=== PATIENT | female | born 1955 | race Caucasian/White ===

== ENCOUNTER → 2016-09-24 | Outpatient (CLI) | payer BC ==
[2016-09-24 13:32] LABS: ABSOLUTE EOSINOPHILS # (AUTO) 0.3 10^3/uL (0.0-0.6); ABSOLUTE LYMPHOCYTES (AUTO) 1.2 10^3/uL (0.5-4.7); ABSOLUTE MONOCYTES (AUTO) 0.4 10^3/uL (0.1-1.4); ABSOLUTE NEUT (AUTO) 3.7 10^3/uL (1.7-8.2); BASOPHILS % (AUTO) 0.7 % (0-2); EOSINOPHILS % (AUTO) 5.7 % (0-6); HEMATOCRIT 36.8 % (36.0-47.0); HEMOGLOBIN 12.5 g/dL (12.0-15.5); HGB HCT DIFFERENCE 0.7; LYMPHOCYTES % (AUTO) 21.5 % (13-45); MEAN CORPUSCULAR HEMOGLOBIN 29.9 pg (27.0-33.4); MEAN CORPUSCULAR HGB CONC 34.1 g/dL (32.0-36.0); MEAN CORPUSCULAR VOLUME 88 fl (80-97); MONOCYTES % (AUTO) 7.3 % (3-13); SEGMENTED NEUTROPHILS % (AUTO) 64.8 % (42-78); WHITE BLOOD COUNT 5.8 10^3/uL (4.0-10.5)
[2016-09-24 13:50] LABS: ALANINE AMINOTRANSFERASE 37 U/L (9-52); ALBUMIN 3.7 g/dL (3.5-5.0); ALKALINE PHOSPHATASE 71 U/L (38-126); ANION GAP 10 (5-19); ASPARTATE AMINO TRANSFERASE 19 U/L (14-36); BILIRUBIN,TOTAL 0.4 mg/dL (0.2-1.3); BLOOD UREA NITROGEN 21 mg/dL (7-20); CALCIUM 9.2 mg/dL (8.4-10.2); CARBON DIOXIDE 24 mmol/L (22-30); CHLORIDE 109 mmol/L (98-107); CREATININE RESULT 0.81 mg/dL (0.52-1.25); GLUCOSE 96 mg/dL (75-110); POTASSIUM 4.3 mmol/L (3.6-5.0); SODIUM 142.9 mmol/L (137-145); TOTAL PROTEIN 6.8 g/dL (6.3-8.2)
== END ==
LOC: OD 12:44
PROVIDERS: ATTEND Internal Medicine
DX: I10 Essential (primary) hypertension (principal); Z79.899 Other long term (current) drug therapy
CPT/HCPCS: 36415; 80053; 85025

== ENCOUNTER → 2018-06-30 | Outpatient (CLI) | payer MEDICARE ==
[2018-06-30 10:02] LABS: ABSOLUTE EOSINOPHILS # (AUTO) 0.2 10^3/uL (0.0-0.6); ABSOLUTE LYMPHOCYTES (AUTO) 0.8 10^3/uL (0.5-4.7); ABSOLUTE MONOCYTES (AUTO) 0.4 10^3/uL (0.1-1.4); BASOPHILS % (AUTO) 0.5 % (0-2); HEMATOCRIT 37.9 % (36.0-47.0); HEMOGLOBIN 13.1 g/dL (12.0-15.5); LYMPHOCYTES % (AUTO) 15.2 % (13-45); MEAN CORPUSCULAR HEMOGLOBIN 30.1 pg (27.0-33.4); MEAN CORPUSCULAR HGB CONC 34.6 g/dL (32.0-36.0); MEAN CORPUSCULAR VOLUME 87 fl (80-97); PLATELET COUNT 253 10^3/uL (150-450); RED BLOOD COUNT 4.35 10^6/uL (3.72-5.28); RED CELL DISTRIBUTION WIDTH 13.8 % (11.5-14.0); SEGMENTED NEUTROPHILS % (AUTO) 72.3 % (42-78); TOTAL CELLS COUNTED % (AUTO) 100 %; WHITE BLOOD COUNT 5.5 10^3/uL (4.0-10.5)
[2018-06-30 10:08] LABS: ALANINE AMINOTRANSFERASE 29 U/L (9-52); ALKALINE PHOSPHATASE 72 U/L (38-126); ANION GAP 11 (5-19); ASPARTATE AMINO TRANSFERASE 26 U/L (14-36); BILIRUBIN,DIRECT 0.1 mg/dL (0.0-0.4); BILIRUBIN,TOTAL 0.5 mg/dL (0.2-1.3); BLOOD UREA NITROGEN 21 mg/dL (7-20); CARBON DIOXIDE 27 mmol/L (22-30); CHLORIDE 106 mmol/L (98-107); CHOLESTEROL 204.45 mg/dL (0-200); GLUCOSE 93 mg/dL (75-110); POTASSIUM 4.7 mmol/L (3.6-5.0); SODIUM 144.3 mmol/L (137-145); TOTAL PROTEIN 6.5 g/dL (6.3-8.2); TRIGLYCERIDES 79 mg/dL (<150)
[2018-06-30 10:20] LABS: DIRECT LDL 127 mg/dL (<100)
== END ==
LOC: OD 09:18
PROVIDERS: ATTEND Internal Medicine
DX: I10 Essential (primary) hypertension (principal); E78.00 Pure hypercholesterolemia, unspecified; Z79.899 Other long term (current) drug therapy
CPT/HCPCS: 36415; 80053; 80061; 85025

== ENCOUNTER 2018-07-09 12:19 | Observation (INO) | payer MEDICARE ==
[2018-07-09] MEDS ORDERED: ASPIRIN 81 MG TABLET, CHEWABLE PO ONE (14:06)
--- NOTE | 2018-07-09 14:09 | ER Document Report ---
ED Medical Screen (RME) - General TRAVEL OUTSIDE OF THE [place] IN LAST 30 DAYS: No <RACQUEL REAL - Last Filed: 07/09/18 14:08> <GAVIN BENSON - Last Filed: 07/09/18 15:36> - General Chief Complaint: Chest Pain Stated Complaint: CHEST PAIN Time Seen by Provider: 07/09/18 14:05 Notes: Patient says that she is felt a pressure in her chest since she got up to go to the bathroom around 4 AM this morning. It feels as if an elephant is sitting on her chest. It feels constant. She denies cough cold or chest congestion. Also denies any nausea vomiting or diarrhea has not been ill recently. No fevers. Patient says that she saw her primary care provider, about 10 days ago and he added metoprolol to her losartan for her high blood pressure. Has no history of any heart disease. Non-smoker. (RACQUEL REAL) - Related Data Allergies/Adverse Reactions: celecoxib [From Celebrex] Allergy (Verified 07/09/18 14:05) codeine Allergy (Verified 07/09/18 14:05) Past Medical History - Social History Chew tobacco use (# tins/day): No Frequency of alcohol use: None Drug Abuse: None - Past Medical History Cardiac Medical History: Reports: Hx Hypertension Denies: Hx Heart Attack Pulmonary Medical History: Denies: Hx Asthma Neurological Medical History: Denies: Hx Cerebrovascular Accident, Hx Seizures Renal/ Medical History: Denies: Hx Peritoneal Dialysis GI Medical History: Denies: Hx Hepatitis, Hx Hiatal Hernia, Hx Ulcer Infectious Medical History: Denies: Hx Hepatitis Past Surgical History: Reports: Hx Hysterectomy. Denies: Hx Mastectomy, Hx Open Heart Surgery, Hx Pacemaker <RACQUEL REAL - Last Filed: 07/09/18 14:08> - Vital signs Vitals: Temp Pulse Resp BP Pulse Ox 97.7 F 44 L 16 137/63 H 97 07/09/18 12:32 07/09/18 12:32 07/09/18 12:32 07/09/18 12:32 07/09/18 12:32 Course - Laboratory Result Diagrams: 07/09/18 14:19 07/09/18 14:19 <GAVIN BENSON - Last Filed: 07/09/18 15:36> - Vital Signs Vital signs: Temp Pulse Resp BP Pulse Ox 97.7 F 44 L 16 137/63 H 97 07/09/18 12:32 07/09/18 12:32 07/09/18 12:32 07/09/18 12:32 07/09/18 12:32 - Laboratory Laboratory results interpreted by me: 07/09/18 07/09/18 14:19 14:19 Seg Neutrophils % 89.6 H Lymphocytes % 7.5 L Monocytes % 2.5 L Absolute Neutrophils 8.9 H BUN 21 H Creatinine 0.50 L Glucose 124 H Doctor's Discharge <RACQUEL REAL - Last Filed: 07/09/18 14:08> <GAVIN BENSON - Last Filed: 07/09/18 15:36> - Discharge Clinical Impression: Chest pain Qualifiers: Chest pain type: unspecified Qualified Code(s): R07.9 - Chest pain, unspecified Condition: Fair Disposition: ADMITTED OBSERVATION
[2018-07-09 14:43] LABS: ABSOLUTE LYMPHOCYTES (AUTO) 0.7 10^3/uL (0.5-4.7); ABSOLUTE MONOCYTES (AUTO) 0.2 10^3/uL (0.1-1.4); ABSOLUTE NEUT (AUTO) 8.9 10^3/uL (1.7-8.2); BASOPHILS % (AUTO) 0.3 % (0-2); EOSINOPHILS % (AUTO) 0.1 % (0-6); HEMATOCRIT 37.5 % (36.0-47.0); HEMOGLOBIN 12.9 g/dL (12.0-15.5); LYMPHOCYTES % (AUTO) 7.5 % (13-45); MEAN CORPUSCULAR HEMOGLOBIN 30.1 pg (27.0-33.4); MEAN CORPUSCULAR HGB CONC 34.4 g/dL (32.0-36.0); MEAN CORPUSCULAR VOLUME 87 fl (80-97); MONOCYTES % (AUTO) 2.5 % (3-13); PLATELET COUNT 310 10^3/uL (150-450); RED BLOOD COUNT 4.29 10^6/uL (3.72-5.28); RED CELL DISTRIBUTION WIDTH 13.7 % (11.5-14.0); SEGMENTED NEUTROPHILS % (AUTO) 89.6 % (42-78); TOTAL CELLS COUNTED % (AUTO) 100 %; WHITE BLOOD COUNT 9.9 10^3/uL (4.0-10.5)
[2018-07-09 15:02] LABS: ALANINE AMINOTRANSFERASE 32 U/L (9-52); ALKALINE PHOSPHATASE 67 U/L (38-126); ANION GAP 14 (5-19); ASPARTATE AMINO TRANSFERASE 25 U/L (14-36); BILIRUBIN,DIRECT 0.1 mg/dL (0.0-0.4); BILIRUBIN,TOTAL 0.3 mg/dL (0.2-1.3); BLOOD UREA NITROGEN 21 mg/dL (7-20); CALCIUM 9.4 mg/dL (8.4-10.2); CARBON DIOXIDE 25 mmol/L (22-30); CHLORIDE 103 mmol/L (98-107); CREATINE KINASE 112 U/L (30-135); GLUCOSE 124 mg/dL (75-110); POTASSIUM 4.2 mmol/L (3.6-5.0); SODIUM 142.1 mmol/L (137-145); TOTAL PROTEIN 6.7 g/dL (6.3-8.2)
[2018-07-09 15:13] LABS: CREATINE KINASE MB 2.17 ng/mL (<4.55); TROPONIN I 0.03 ng/mL
--- NOTE | 2018-07-09 15:14 | RADIOLOGY REPORT (SQ) ---
EXAM DESCRIPTION: CHEST SINGLE VIEW COMPLETED DATE/TIME: 07/09/2018 3:00 pm REASON FOR STUDY: Anterior chest pain COMPARISON: None. EXAM PARAMETERS: NUMBER OF VIEWS: One view. TECHNIQUE: Single frontal radiographic view of the chest acquired. RADIATION DOSE: NA LIMITATIONS: None. FINDINGS: LUNGS AND PLEURA: No opacities, masses or pneumothorax. No pleural effusion. MEDIASTINUM AND HILAR STRUCTURES: No masses. Contour normal. HEART AND VASCULAR STRUCTURES: Heart normal in size. Normal vasculature. BONES: No acute findings. HARDWARE: None in the chest. OTHER: No other significant finding. IMPRESSION: NO ACUTE RADIOGRAPHIC FINDING IN THE CHEST. TECHNICAL DOCUMENTATION: JOB ID: [id number] [employer]- All Rights Reserved Reading location - IP/workstation name: [email or web address]
--- NOTE | 2018-07-09 15:53 | ER Document Report ---
ED Cardiac - General Chief Complaint: Chest Pain Stated Complaint: CHEST PAIN Time Seen by Provider: 07/09/18 14:05 Information source: Patient Notes: 63-year-old female that presents today with the onset this morning of some substernal nonradiating chest discomfort. She denies any radiation. She denies any aggravating or relieving factors. She denies any nausea, vomiting, fevers, shortness of breath, lightheadedness, calf pain or leg swelling. She denies any recent trips or travel. Patient states she had a stress test prior to a breast cancer surgery in the past. Has never seen a reimbursement director otherwise. Patient was restarted on her metoprolol blood pressure medication yesterday by her primary care physician Dr. Combs. She currently denies any chest pain. She has received aspirin 325. TRAVEL OUTSIDE OF THE [place] IN LAST 30 DAYS: No - HPI Patient complains to provider of: Chest pain Was the onset of pain: Gradual Is the pain a: New problem Chest pain location: Substernal Quality of pain: Other Chest pain radiation location: None Severity now: None Severity at worst: Moderate Pain level currently: Denies Associated symptoms: Other Exacerbated by: Denies Relieved by: Nothing Similar symptoms previously: No Recently seen / treated by doctor: No - Related Data Allergies/Adverse Reactions: celecoxib [From Celebrex] Allergy (Verified 07/09/18 14:05) codeine Allergy (Verified 07/09/18 14:05) Past Medical History - Social History Smoking Status: Never Smoker Chew tobacco use (# tins/day): No Frequency of alcohol use: None Drug Abuse: None Family History: Reviewed & Not Pertinent Patient has suicidal ideation: No Patient has homicidal ideation: No - Past Medical History Cardiac Medical History: Reports: Hx Hypertension Denies: Hx Heart Attack Pulmonary Medical History: Denies: Hx Asthma Neurological Medical History: Denies: Hx Cerebrovascular Accident, Hx Seizures Renal/ Medical History: Denies: Hx Peritoneal Dialysis GI Medical History: Denies: Hx Hepatitis, Hx Hiatal Hernia, Hx Ulcer Infectious Medical History: Denies: Hx Hepatitis Past Surgical History: Reports: Hx Hysterectomy. Denies: Hx Mastectomy, Hx Open Heart Surgery, Hx Pacemaker Review of Systems - Review of Systems Constitutional: denies: Fever EENT: denies: Eye discharge, Nose discharge Cardiovascular: denies: Palpitations, Syncope, Dizziness Respiratory: denies: Short of breath Gastrointestinal: denies: Vomiting Genitourinary: denies: Dysuria Musculoskeletal: denies: Leg swelling Skin: Other - no hives. denies: Rash Neurological/Psychological: Other - no slurred speech -: Yes All other systems reviewed and negative Physical Exam - Vital signs Vitals: Temp Pulse Resp BP Pulse Ox 97.7 F 44 L 16 137/63 H 97 07/09/18 12:32 07/09/18 12:32 07/09/18 12:32 07/09/18 12:32 07/09/18 12:32 Notes: Reviewed vital signs and nursing note as charted by RN. CONSTITUTIONAL: Alert and oriented and responds appropriately to questions. Well -appearing; well-nourished HEAD: Normocephalic; atraumatic NECK: Supple without meningismus; non-tender; no cervical lymphadenopathy, no masses CARD: Regular rate and rhythm; no murmurs; symmetric distal pulses RESP: Normal chest excursion without splinting or tachypnea; breath sounds clear and equal bilaterally; no wheezes, no rhonchi, no rales ABD/GI: Normal bowel sounds; non-distended; soft, non-tender; no palpable organomegaly or masses BACK: The back appears normal and is non-tender to palpation EXT: Normal ROM in all joints; non-tender to palpation; no edema SKIN: No acute lesions noted NEURO: CN 2-12 intact; 5/5 bilateral upper and lower extremity strength with sensation intact to light touch PSYCH: The patient's mood and manner are appropriate. Grooming and personal hygiene are appropriate. Course - Re-evaluation Re-evalutation: Given the above history and physical examination I do believe pulmonary embolism and aortic dissection to be extremely unlikely. Patient's blood pressure was stable but her heart rate is very low. I am concerned about this possibly being related to her recent restarting her beta-johanna by her primary care physician. EKG shows a heart rate of 44, sinus bradycardia, minimal left axis deviation, flattening T waves in aVL, no ST elevation or depression. I have no old EKG to compare. Chest x-ray shows normal heart, normal mediastinum, no fractures, normal lung reno, no pneumothorax. 07/09/18 15:51 Labs as recorded. Patient is still chest pain-free. Patient will be admitted to the hospitalist service on the panel monitor observation unit. - Vital Signs Vital signs: Temp Pulse Resp BP Pulse Ox 97.7 F 44 L 16 137/63 H 97 07/09/18 12:32 07/09/18 12:32 07/09/18 12:32 07/09/18 12:32 07/09/18 12:32 - Laboratory Result Diagrams: 07/09/18 14:19 07/09/18 14:19 Laboratory results interpreted by me: 07/09/18 07/09/18 14:19 14:19 Seg Neutrophils % 89.6 H Lymphocytes % 7.5 L Monocytes % 2.5 L Absolute Neutrophils 8.9 H BUN 21 H Creatinine 0.50 L Glucose 124 H Discharge - Discharge Clinical Impression: Chest pain Qualifiers: Chest pain type: unspecified Qualified Code(s): R07.9 - Chest pain, unspecified Condition: Fair Disposition: ADMITTED OBSERVATION Admitting Provider: Hospitalist Unit Admitted: Telemetry
[2018-07-09] MEDS ORDERED: NORMAL SALINE 1000 ML 1,000 ML IV PRN (16:39)
[2018-07-09] MEDS ORDERED: MORPHINE SULFATE 10 MG/ML INJ IV PRN (16:39)
[2018-07-09] MEDS ORDERED: MAG HYDROX/AL HYDROX/SIMETH SUSP 30 ML UDCUP PO PRN (16:39)
[2018-07-09] MEDS ORDERED: PROMETHAZINE HCL INJ 25 MG/1 ML VIAL IV PRN (16:43)
[2018-07-09] MEDS ORDERED: HYDRALAZINE HCL INJ/PF 20 MG/1 ML SDV IV PRN (16:45)
--- NOTE | 2018-07-09 17:03 | PDOC H&P ---
History of Present Illness Admission Date/PCP: 07/09/18 16:31 Patient complains of: chest pain History of Present Illness: CAROL ANN PAK is a 63 year old female with a past medical history of hypertension , hyperlipidemia, and remote breast cancer status post radiation treatment who presented to the emergency department today with a complaint of persistent substernal chest pain described as pressure that has been present since approximately 4 AM this morning. It is not especially worsened by activity or relieved by rest; no associated symptoms. The patient reports that she had a stress test and echocardiogram that were reportedly normal in 2006 but has had no cardiac follow-up since that time. Of note, she did start Toprol 50 mg once daily approximately 1 week ago for management of hypertension and complaint of palpitations to her provider. She cannot recall if her primary care provider had noted any abnormal rhythm changes at the time of that visit. Evaluation in the emergency department revealed profound bradycardia (heart rate 38-44), normal blood pressure, indeterminately elevated troponin at 0.03 and otherwise normal laboratory evaluation. Chest x-ray is benign. EKG demonstrates sinus bradycardia with borderline left axis deviation; no ST segment elevations or depressions, inverted T waves leads III and V1. She is referred to the hospitalist service for admission and evaluation of chest pain. Past Medical History Cardiac Medical History: Reports: Hyperlipidema, Hypertension Denies: Coronary Artery Disease, Myocardial Infarction Pulmonary Medical History: Reports: None EENT Medical History: Reports: None Neurological Medical History: Reports: None Endocrine Medical History: Reports: None Renal/ Medical History: Reports: None Malignancy Medical History: Reports: Breast Cancer GI Medical History: Reports: None Musculoskeltal Medical History: Reports: None Skin Medical History: Reports: None Psychiatric Medical History: Reports: None Traumatic Medical History: Reports: None Hematology: Reports: None Infectious Medical History: Reports: None Past Surgical History Past Surgical History: Reports: Hysterectomy Denies: Amputation, Mastectomy, Pacemaker Social History Information Source: Patient Lives with: Family Smoking Status: Never Smoker Frequency of Alcohol Use: Occasional Hx Recreational Drug Use: No Drugs: None - Advance Directive Resuscitation Status: Full Code Surrogate healthcare decision maker:: The patient's daughter, Kamilla. Family History Family History: Reviewed & Not Pertinent Parental Family History Reviewed: Yes Children Family History Reviewed: Yes Sibling(s) Family History Reviewed.: Yes Medication/Allergy Home Medications: Losartan Potassium [Cozaar 100 mg Tablet] 100 mg PO DAILY 03/20/13 Cholecalciferol (Vitamin D3) [Vitamin D3 1000 Unit Tablet] 1,000 unit PO DAILY 07/09/18 Metoprolol Succinate [Toprol Xl] 50 mg PO QPM 07/09/18 Multivit/Folic Acid/Vit K1 [One-A-Day Women's 50 Plus Tab] 1 each PO DAILY 07/09 Oxybutynin Chloride [Ditropan 5 Mg Tablet] 5 mg PO TID 07/09/18 Turmeric Root Extract [Turmeric] 1,000 mg PO DAILY 07/09/18 Allergies/Adverse Reactions: oxybutynin Allergy (Mild, Verified 07/09/18 16:33) ITCHING celecoxib [From Celebrex] Allergy (Verified 07/09/18 14:05) Review of Systems Constitutional: ABSENT: chills, fever(s), headache(s), weight gain, weight loss Eyes: ABSENT: visual disturbances Ears: ABSENT: hearing changes Cardiovascular: PRESENT: chest pain. ABSENT: dyspnea on exertion, edema, orthropnea, palpitations Respiratory: ABSENT: cough, hemoptysis Gastrointestinal: ABSENT: abdominal pain, constipation, diarrhea, hematemesis, hematochezia, nausea, vomiting Genitourinary: ABSENT: dysuria, hematuria Musculoskeletal: ABSENT: joint swelling Integumentary: ABSENT: rash, wounds Neurological: ABSENT: abnormal gait, abnormal speech, confusion, dizziness, focal weakness, syncope Psychiatric: ABSENT: anxiety, depression, homidical ideation, suicidal ideation Endocrine: ABSENT: cold intolerance, heat intolerance, polydipsia, polyuria Hematologic/Lymphatic: ABSENT: easy bleeding, easy bruising Physical Exam Vital Signs: Temp Pulse Resp BP Pulse Ox 97.7 F 44 L 16 137/63 H 97 07/09/18 12:32 07/09/18 12:32 07/09/18 12:32 07/09/18 12:32 07/09/18 12:32 General appearance: PRESENT: no acute distress, cooperative - Pleasant, well- developed, well-nourished - Overweight Head exam: PRESENT: atraumatic, normocephalic Eye exam: PRESENT: conjunctiva pink, EOMI, PERRLA. ABSENT: scleral icterus Ear exam: PRESENT: normal external ear exam Mouth exam: PRESENT: moist, tongue midline Neck exam: ABSENT: carotid bruit, JVD, lymphadenopathy, thyromegaly Respiratory exam: PRESENT: clear to auscultation monie, symmetrical, unlabored. ABSENT: rales, rhonchi, wheezes Cardiovascular exam: PRESENT: bradycardia, +S1, +S2. ABSENT: diastolic murmur, rubs, systolic murmur Pulses: PRESENT: normal dorsalis pedis pul Vascular exam: PRESENT: normal capillary refill GI/Abdominal exam: PRESENT: normal bowel sounds, soft. ABSENT: distended, guarding, mass, organolmegaly, rebound, tenderness Rectal exam: PRESENT: deferred Extremities exam: PRESENT: full ROM. ABSENT: calf tenderness, clubbing, pedal edema Neurological exam: PRESENT: alert, awake, oriented to person, oriented to place , oriented to time, oriented to situation, CN II-XII grossly intact. ABSENT: motor sensory deficit Psychiatric exam: PRESENT: appropriate affect, normal mood. ABSENT: homicidal ideation, suicidal ideation Skin exam: PRESENT: dry, intact, warm. ABSENT: cyanosis, rash Results Impressions: Chest X-Ray 07/09/18 14:06 IMPRESSION: NO ACUTE RADIOGRAPHIC FINDING IN THE CHEST. Assessment & Plan - Diagnosis (1) Chest pain Qualifiers: Chest pain type: unspecified Qualified Code(s): R07.9 - Chest pain, unspecified Is this a current diagnosis for this admission?: Yes Plan: The patient complains of persistent substernal chest pain that has been present since approximately 4 AM this morning. No alleviating or exacerbating factors, no associated symptoms. Heart Score 4; risk factors include moderately suspicious history, age, obesity , hypertension, hyperlipidemia. Chest x-ray is benign. EKG demonstrates sinus bradycardia with inverted T waves in leads III and V1. No ST segment changes. Initial troponin is indeterminately elevated at 0.030 The patient is admitted to the medical floor on continuous cardiac telemetry. She is placed on full dose Lovenox. Daily aspirin therapy. Statin medications are held due to report of severe myalgias with Crestor. We will trend troponins. Echocardiogram is pending. Plan for stress test in the morning. Consider cardiology consultation; especially if she remains bradycardic. Avoid nitroglycerin and patient with significant bradycardia; IV morphine as needed for pain. Supplemental oxygen as needed to maintain oxygen saturations greater than 90% A1c and lipid panel with a.m. labs for risk stratification. Cardiac diet. (2) Bradycardia Is this a current diagnosis for this admission?: Yes Plan: Asymptomatic bradycardia. Heart rate noted to be 38-44; blood pressures are acceptable at 137/63. She denies dizziness with ambulation. Undetermined cause; ACS versus new metoprolol medication (patient reports that she resumed metoprolol after being off the medication for approximately 1 year) . She denies any possibility of accidental metoprolol overdose. EKG demonstrated sinus bradycardia. Trending troponins. TSH is pending. As the patient has appropriate blood pressures and is asymptomatic; will provide gentle IV fluids, provide for patient safety with fall precautions, and continue to monitor on cardiac telemetry. We will consult cardiology if not improved in the morning. Hold metoprolol. Avoid nitrates. (3) Hypertension Qualifiers: Hypertension type: essential hypertension Qualified Code(s): I10 - Essential (primary) hypertension Is this a current diagnosis for this admission?: Yes Plan: The patient reports a history of hypertension; takes losartan 100 mg daily and was recently placed on Toprol-XL 50 mg nightly. Blood pressures are acceptable at present; however patient is noted to be significantly bradycardic. IV hydralazine as needed for blood pressure control. Cardiac diet. Remaining plan as above. (4) Hyperlipidemia Is this a current diagnosis for this admission?: Yes Plan: Patient reports severe myalgias with Crestor; will avoid statin therapies. Lipid panel with a.m. lab work. Cardiac diet. - Time Time Spent: 50 to 70 Minutes Medications reviewed and adjusted accordingly: Yes Anticipated discharge: Home Within: within 24 hours
[2018-07-09] MEDS ORDERED: METOCLOPRAMIDE HCL ORAL SOLN 10 MG/10 ML UDCUP PO ONE (17:50)
[2018-07-09] MEDS ORDERED: LIDOCAINE 2% VISCOUS SOLN 20 ML UDCUP PO ONE (17:50)
[2018-07-09] MEDS ORDERED: MAG HYDROX/AL HYDROX/SIMETH SUSP 30 ML UDCUP PO ONE (17:50)
[2018-07-09] MEDS: LANSOPRAZOLE 30 MG TAB.RAP.DR PO SCH (18:18)
[2018-07-09] MEDS: ENOXAPARIN SODIUM INJ 80 MG/0.8 ML DISP.SYRIN SUBCUT SCH (21:37)
--- NOTE | 2018-07-09 21:41 | EKG REPORT ---
SEVERITY:- OTHERWISE NORMAL ECG - SINUS BRADYCARDIA BORDERLINE LEFT AXIS DEVIATION : Confirmed by: Florence Christine MD 09-Jul-2018 21:40:51
[2018-07-10] MEDS: LANSOPRAZOLE 30 MG TAB.RAP.DR PO SCH (05:07)
[2018-07-10 06:18] LABS: HEMATOCRIT 35.6 % (36.0-47.0); MEAN CORPUSCULAR HEMOGLOBIN 29.5 pg (27.0-33.4); MEAN CORPUSCULAR HGB CONC 33.7 g/dL (32.0-36.0); MEAN CORPUSCULAR VOLUME 88 fl (80-97); PLATELET COUNT 248 10^3/uL (150-450); RED BLOOD COUNT 4.06 10^6/uL (3.72-5.28); RED CELL DISTRIBUTION WIDTH 13.7 % (11.5-14.0); WHITE BLOOD COUNT 8.7 10^3/uL (4.0-10.5)
[2018-07-10 06:36] LABS: ANION GAP 9 (5-19); BLOOD UREA NITROGEN 17 mg/dL (7-20); CALCIUM 8.5 mg/dL (8.4-10.2); CARBON DIOXIDE 26 mmol/L (22-30); CHLORIDE 108 mmol/L (98-107); CHOLESTEROL 174.88 mg/dL (0-200); GLUCOSE 114 mg/dL (75-110); POTASSIUM 3.9 mmol/L (3.6-5.0); SODIUM 143.1 mmol/L (137-145); TRIGLYCERIDES 135 mg/dL (<150)
[2018-07-10 06:47] LABS: DIRECT LDL 104 mg/dL (<100)
[2018-07-10] MEDS ORDERED: LORAZEPAM 0.5 MG TABLET PO PRN (09:13)
[2018-07-10] MEDS: ENOXAPARIN SODIUM INJ 80 MG/0.8 ML DISP.SYRIN SUBCUT SCH (09:23)
[2018-07-10] MEDS ORDERED: ASPIRIN 81 MG TABLET, ENT COATED PO SCH (10:00)
[2018-07-10] MEDS ORDERED: DOCUSATE SODIUM 100 MG CAPSULE PO SCH (10:00)
[2018-07-10 11:29] VITALS: BP 137/63
--- NOTE | 2018-07-10 13:58 | EKG REPORT ---
SEVERITY:- OTHERWISE NORMAL ECG - SINUS BRADYCARDIA BORDERLINE LEFT AXIS DEVIATION : Confirmed by: Florence Christine MD 10-Jul-2018 13:57:58
[2018-07-10] MEDS ORDERED: BUSPIRONE HCL 10 MG TABLET PO SCH (22:00)
[2018-07-11] MEDS ORDERED: BUSPIRONE HCL 10 MG TABLET PO SCH (08:00)
--- NOTE | 2018-07-11 16:42 | PDOC DISCHARGE SUMMARY ---
General - Admit/Disc Date/PCP Admission Date/Primary Care Provider: 07/09/18 16:31 Discharge Date: 07/10/18 - Discharge Diagnosis (1) Chest pain Is this a current diagnosis for this admission?: Yes Summary: The patient presented with a complaint of persistent substernal chest pain without alleviating or aggravating factors and no associated symptoms. Heart Score 4; risk factors include moderately suspicious history, age, obesity , hypertension, hyperlipidemia. Chest x-ray is benign. EKG demonstrates sinus bradycardia with inverted T waves in leads III and V1. No ST segment changes. Initial troponin is indeterminately elevated at 0.030. Trended x4, overall stable and trending down. A1c 5.5%, lipid panel acceptable. Patient was admitted to [facility] on continuous cardiac telemetry. She was placed on full dose Lovenox and daily aspirin therapy. Statins were held due to report of severe myalgias with Crestor. Cardiology was consulted; recommended holding her metoprolol and monitoring overnight. Fortunately the patient's heart rate gradually increased and at time of discharge was stable in the mid 60s-70s. The patient's chest discomfort persisted and in the morning she reported that she felt that it was due to chronic stress and anxiety; requested anxiety medications. She was provided prescriptions for BuSpar twice daily with low- dose Ativan for breakthrough symptoms. She is discharged home in stable condition. Discussed with Cardiology prior to discharge; feel that she is safe for discharge to home with outpatient work up. She is advised to follow-up with her primary care provider within 1 week. She is to follow-up with cardiology, Dr. Gross, within 2 weeks to complete her cardiac workup. Patient is instructed to return to the emergency department as needed for any concerning symptoms. (2) Bradycardia Is this a current diagnosis for this admission?: Yes Summary: Resolved; likely secondary to recent initiation of Toprol-XL. At time of discharge, her heart rate was stable in the mid 60s-70s. Orthostatics vital signs were negative. (3) Hypertension Is this a current diagnosis for this admission?: Yes Summary: Patient to continue her home dose losartan. Hold metoprolol (4) Hyperlipidemia Is this a current diagnosis for this admission?: No Summary: Diet controlled. Lipid panel is acceptable. (5) Anxiety Is this a current diagnosis for this admission?: Yes Summary: Pt reports significant stress and anxiety recently; feels that her chest discomfort may be related to anxiety and requests medications. She is started on twice daily Buspar. She was provided prescriptions for twice daily Buspar and low-dose Ativan as needed for severe symptoms. She is encouraged to discuss antidepressant therapy with her PCP at her follow up appointment. - Additional Information Resuscitation Status: Full Code Discharge Diet: Cardiac Discharge Activity: Activity As Tolerated, Balance Activity w/Rest Prescriptions: Aspirin [Ecotrin 81 mg EC Tablet] 81 mg PO DAILY #90 tabec Buspirone HCl [Buspar 10 mg Tablet] 10 mg PO ASDIR PRN #45 tablet PRN Reason: Lorazepam [Ativan 0.5 mg Tablet] 0.25 mg PO Q8HP PRN #6 tablet PRN Reason: Home Medications: Losartan Potassium [Cozaar 100 mg Tablet] 100 mg PO DAILY 03/20/13 Cholecalciferol (Vitamin D3) [Vitamin D3 1000 Unit Tablet] 1,000 unit PO DAILY 07/09/18 Multivit/Folic Acid/Vit K1 [One-A-Day Women's 50 Plus Tab] 1 each PO DAILY 07/09 Oxybutynin Chloride [Ditropan 5 mg Tablet] 5 mg PO TID 07/09/18 Turmeric Root Extract [Turmeric] 1,000 mg PO DAILY 07/09/18 Aspirin [Ecotrin 81 mg EC Tablet] 81 mg PO DAILY #90 tabec 07/10/18 Buspirone HCl [Buspar 10 mg Tablet] 10 mg PO ASDIR PRN #45 tablet 07/10/18 Buspirone HCl [Buspar 10 mg Tablet] 10 mg PO QHS tablet 07/10/18 Lorazepam [Ativan 0.5 mg Tablet] 0.25 mg PO Q8HP PRN #6 tablet 07/10/18 History of Present Illness History of Present Illness: CAROL ANN PAK is a 63 year old female with a past medical history of hypertension , hyperlipidemia, and remote breast cancer status post radiation treatment who presented to the emergency department today with a complaint of persistent substernal chest pain described as pressure that has been present since approximately 4 AM this morning. It is not especially worsened by activity or relieved by rest; no associated symptoms. The patient reports that she had a stress test and echocardiogram that were reportedly normal in 2006 but has had no cardiac follow-up since that time. Of note, she did start Toprol 50 mg once daily approximately 1 week ago for management of hypertension and complaint of palpitations to her provider. She cannot recall if her primary care provider had noted any abnormal rhythm changes at the time of that visit. Evaluation in the emergency department revealed profound bradycardia (heart rate 38-44), normal blood pressure, indeterminately elevated troponin at 0.03 and otherwise normal laboratory evaluation. Chest x-ray is benign. EKG demonstrates sinus bradycardia with borderline left axis deviation; no ST segment elevations or depressions, inverted T waves leads III and V1. She is referred to the hospitalist service for admission and evaluation of chest pain. Physical Exam Vital Signs: Temp Pulse Resp BP Pulse Ox 98.0 F 59 L 16 137/63 H 99 07/10/18 11:28 07/10/18 11:28 07/10/18 11:28 07/10/18 11:28 07/10/18 11:28 Intake & Output 07/10/18 07/11/18 07/12/18 06:59 06:59 06:59 Intake Total 459 237 Balance 459 237 Weight 84.6 kg General appearance: PRESENT: no acute distress, well-developed, well-nourished - Overweight Head exam: PRESENT: atraumatic, normocephalic Eye exam: PRESENT: conjunctiva pink, EOMI, PERRLA. ABSENT: scleral icterus Ear exam: PRESENT: normal external ear exam Mouth exam: PRESENT: moist, tongue midline Neck exam: ABSENT: carotid bruit, JVD, lymphadenopathy, thyromegaly Respiratory exam: PRESENT: clear to auscultation monie. ABSENT: rales, rhonchi, wheezes Cardiovascular exam: PRESENT: RRR. ABSENT: diastolic murmur, rubs, systolic murmur Pulses: PRESENT: normal dorsalis pedis pul Vascular exam: PRESENT: normal capillary refill GI/Abdominal exam: PRESENT: normal bowel sounds, soft. ABSENT: distended, guarding, mass, organolmegaly, rebound, tenderness Rectal exam: PRESENT: deferred Extremities exam: PRESENT: full ROM. ABSENT: calf tenderness, clubbing, pedal edema Neurological exam: PRESENT: alert, awake, oriented to person, oriented to place , oriented to time, oriented to situation, CN II-XII grossly intact. ABSENT: motor sensory deficit Psychiatric exam: PRESENT: appropriate affect, normal mood. ABSENT: homicidal ideation, suicidal ideation Skin exam: PRESENT: dry, intact, warm. ABSENT: cyanosis, rash Results Laboratory Results: 07/10/18 06:03 07/10/18 06:03 07/09/18 07/09/18 07/10/18 17:45 23:46 06:03 Troponin I 0.035 0.032 0.028 Impressions: Chest X-Ray 07/09/18 14:06 IMPRESSION: NO ACUTE RADIOGRAPHIC FINDING IN THE CHEST. Qualifiers - * PATIENT BEING DISCHARGED WITH ANY OF THE FOLLOWING DIAGNOSIS: No Plan Discharge Plan: Discharged home. Hold metoprolol. Follow-up with primary care provider within 1 week. Follow-up with cardiology, Dr. Christine, within 2 weeks for continued outpatient workup. Time Spent: Less than 30 Minutes
== END 2018-07-10 11:59 | disposition home or self-care (01) ==
LOC: ER 12:19 → EH 16:31 → 3N 20:00
PROVIDERS: ADMIT Internal Medicine; ATTEND Internal Medicine
DX: R07.2 Precordial pain (principal); R00.1 Bradycardia, unspecified; F41.9 Anxiety disorder, unspecified; I10 Essential (primary) hypertension; E78.5 Hyperlipidemia, unspecified; R79.89 Other specified abnormal findings of blood chemistry; E66.3 Overweight; Z73.3 Stress, not elsewhere classified; Z79.899 Other long term (current) drug therapy; Z92.3 Personal history of irradiation; Z85.3 Personal history of malignant neoplasm of breast; Z90.710 Acquired absence of both cervix and uterus
CPT/HCPCS: 93005 ×2; 99285; 96360; 36415 ×2; 82553; 82550; 84443; 85025; 85027; 80048; 80053; 84484 ×2; 83036; 80061; 71045; 93010 ×2; G0378 ×2; A9270 ×5; J3490; J7030; J1650 ×2

== ENCOUNTER → 2018-11-29 | Outpatient (CLI) | payer MEDICARE ==
[2018-11-29 11:43] LABS: ABSOLUTE BASOPHILS # (AUTO) 0.1 10^3/uL (0.0-0.2); ABSOLUTE EOSINOPHILS # (AUTO) 0.3 10^3/uL (0.0-0.6); ABSOLUTE LYMPHOCYTES (AUTO) 1.5 10^3/uL (0.5-4.7); ABSOLUTE MONOCYTES (AUTO) 0.4 10^3/uL (0.1-1.4); ABSOLUTE NEUT (AUTO) 3.4 10^3/uL (1.7-8.2); BASOPHILS % (AUTO) 0.9 % (0-2); EOSINOPHILS % (AUTO) 4.8 % (0-6); HEMOGLOBIN 12.8 g/dL (12.0-15.5); LYMPHOCYTES % (AUTO) 26.6 % (13-45); MEAN CORPUSCULAR HEMOGLOBIN 29.9 pg (27.0-33.4); MEAN CORPUSCULAR HGB CONC 34.6 g/dL (32.0-36.0); MEAN CORPUSCULAR VOLUME 87 fl (80-97); MONOCYTES % (AUTO) 6.9 % (3-13); PLATELET COUNT 279 10^3/uL (150-450); RED BLOOD COUNT 4.27 10^6/uL (3.72-5.28); SEGMENTED NEUTROPHILS % (AUTO) 60.8 % (42-78); TOTAL CELLS COUNTED % (AUTO) 100 %; WHITE BLOOD COUNT 5.6 10^3/uL (4.0-10.5)
[2018-11-29 12:11] LABS: BLOOD UREA NITROGEN 17 mg/dL (7-20); CARBON DIOXIDE 29 mmol/L (22-30); CHLORIDE 106 mmol/L (98-107); GLUCOSE 97 mg/dL (75-110); POTASSIUM 4.5 mmol/L (3.6-5.0); SODIUM 139.8 mmol/L (137-145)
[2018-11-29 12:20] LABS: ANION GAP 5 (5-19)
[2018-11-29 12:27] LABS: FREE T3 3.4 pg/mL (2.77-5.27); FREE T4 (FREE THYROXINE) 1.04 ng/dL (0.78-2.19)
[2018-11-29 12:41] LABS: THYROID STIMULATING HORMONE 3.02 uIU/mL (0.47-4.68)
== END ==
LOC: OD 11:15
PROVIDERS: ATTEND Specialist
DX: I10 Essential (primary) hypertension (principal); R07.9 Chest pain, unspecified; R01.1 Cardiac murmur, unspecified; R06.09 Other forms of dyspnea; F41.9 Anxiety disorder, unspecified; E78.5 Hyperlipidemia, unspecified; Z79.899 Other long term (current) drug therapy
CPT/HCPCS: 36415; 80048; 84439; 84443; 84481; 85025

== ENCOUNTER → 2018-12-28 | Outpatient (CLI) | payer MEDICARE ==
--- NOTE | 2018-12-29 11:56 | Pulmonary Function Test ---
Pulmonary Function Test Date of Procedure:: 12/29/18 INDICATION:: Dyspnea Referring Provider: Dr.Lakshmi Christine Rhythmic Gymnastics Coach: Jackie Evangelista [employer], [employer] - Report Spirometry: Spirometry: pre-FVC: 4.06 L 126% pre-FEV:1 3.19 L 126% pre-FEV1/FVC % 76 predicted 82 [id number]% 3.03 L 115% Lung Volume: Total lung capacity: 5.83 L 111% Vital capacity: 4.06 L 128% Inspiratory capacity: 2.99 L FRC N2: 2.85 L 101% ERV: 0.36 L RV: 1.77 L 86% RV/TLC %: 30 predicted 39 Diffusion Capactity: Diffusion Capacity: DLCO; 21.3 96% DLCO/VA; 4.13 110% Impression: No obstructive ventilatory defect. No restrictive ventilatory defect. Diffusion capacity.
== END ==
LOC: RT 08:10
PROVIDERS: ATTEND Specialist
DX: J44.9 Chronic obstructive pulmonary disease, unspecified (principal)
CPT/HCPCS: 94010; 94727; 94729

== ENCOUNTER → 2019-04-11 | Outpatient (CLI) | payer MEDICARE ==
--- NOTE | 2019-04-11 12:39 | RADIOLOGY REPORT (SQ) ---
EXAM DESCRIPTION: NM WHOLE BODY BONE SCAN COMPLETED DATE/TIME: 04/11/2019 11:59 am REASON FOR STUDY: C50.812 MALIGNANT NEOPLASM OF OVRLP SITES OF LEFT FEMALE BREAST C50.812 MALIGNANT NEOPLASM OF OVRLP SITES OF LEFT FEMALE SOO COMPARISON: Chest x-ray 07/09/2018 RADIONUCLIDE AND DOSE: 20 millicuries Tc99m HDP. The route of agent administration: Intravenous. ADDITIONAL DRUGS AND DOSES: None. TECHNIQUE: Routine delayed images at 3 hours post radionuclide injection acquired of the bony skelet on including anterior and posterior whole-body projections and additional focused images as needed. LIMITATIONS: None. FINDINGS: BONES: There is mild degenerative uptake in the acromioclavicular joints. There is focal increased uptake in greater trochanter of the right hip. KIDNEYS: Symmetric excretion without obstruction. OTHER: No other significant finding. IMPRESSION: There is focal increased uptake in the right greater trochanter. This could be secondar y to trauma, recommend clinical correlation. Cannot exclude an isolated metastasis. COMMENT: Quality measure 147: Current bone scan is compared with any available plain radiographs, p rior bone scans, and CT/MRI. TECHNICAL DOCUMENTATION: JOB ID: [id number] [employer]- All Rights Reserved Reading location - IP/workstation name: [email or web address]
== END ==
LOC: RAD 08:11
PROVIDERS: ATTEND Internal Medicine Hematology & Oncology
DX: C50.812 Malignant neoplasm of overlapping sites of left female breast (principal)
CPT/HCPCS: 78306; A9561; Q9969

== ENCOUNTER → 2019-04-14 | Outpatient (CLI) | payer MEDICARE ==
--- NOTE | 2019-04-14 14:36 | RADIOLOGY REPORT (SQ) ---
EXAM DESCRIPTION: CT CHEST WITH; CT ABD/PELVIS WITH IV ORAL COMPLETED DATE/TIME: 04/14/2019 2:19 pm REASON FOR STUDY: C50.812 MALIGNANT NEOPLASM OF OVRLP SITES OF LEFT FEMALE BREAST C50.812 MALIGNANT NEOPLASM OF OVRLP SITES OF LEFT FEMALE SOO CONTRAST TYPE AND DOSE: contrast/concentration: Isovue 350.00 mg/ml; Total Contrast Delivered: 93.0 ml; Total Saline Delivered: 71.0 ml RENAL FUNCTION: Creatinine 0.70 BUN 16 COMPARISON: None. TECHNIQUE: CT scan of the chest performed using helical scanning technique with dynamic intravenous contrast injection. Images reviewed with lung, soft tissue and bone windows. Reconstructed coronal a nd sagittal MPR images reviewed. All images stored on PACS. All CT scanners at this facility use dose modulation, iterative reconstruction, and/or weight based d osing when appropriate to reduce radiation dose to as low as reasonably achievable (ALARA). [facility]: Dose Right [facility]: CareDose [facility]: Dose Right [facility]: Teradose 4D [facility]: Smart [place] Leather RADIATION DOSE: CT Rad equipment meets quality standard of care and radiation dose reduction techniq ues were employed. CTDIvol: 9.8 - 14.3 mGy. DLP: 2205 mGy-cm. . LIMITATIONS: None. FINDINGS: AXILLAE: There is a 2.4 cm lymph node in the left axilla. It demonstrates a small quentin o f calcification. There are small nodes in the right axilla. CHEST WALL: 3.2 cm left breast mass. LUNGS: There are areas of subpleural thickening. There is a single faint nodule in the medial aspect of the left upper lobe. This is best demonstrated on series 4, image 16. Doubt this is of clinical significance. There is a calcified granuloma in the left base. PLEURA: No effusions. No calcifications. THYROID: No masses or significant asymmetry. HILAR AND MEDIASTINAL STRUCTURES: There are prominent lymph nodes in the AP window. Largest node chucky sures 1.5 cm. AORTA AND GREAT VESSELS: No aneurysm. No dissection. PULMONARY ARTERIES: No identified pulmonary emboli. Study not optimized for the pulmonary arteries. HEART: No pericardial effusion. HARDWARE AND LIFELINES: None. BONES: Degenerative changes in the spine. No evidence of metastatic disease. OTHER: No other significant finding. IMPRESSION: 1. 2.4 cm left axillary lymph nodes suspicious for metastatic disease. 2. 3.2 cm left breast mass. 3. Small nonspecific AP window lymph nodes. The largest measures 1.5 cm. COMPARISON: None. RADIATION DOSE: CT Rad equipment meets quality standard of care and radiation dose reduction techniq ues were employed. CTDIvol: 9.8 - 14.3 mGy. DLP: 2205 mGy-cm. mGy. TECHNIQUE: CT scan of the abdomen and pelvis performed with intravenous and oral contrast using vibha zuleima scanning technique with dynamic intravenous contrast injection. Images reviewed with lung, soft tissue and bone windows. Reconstructed coronal and sagittal MPR images reviewed. Delayed images for evaluation of the urinary system also acquired and evaluated. All images stored on PACS. All CT scanners at this facility use dose modulation, iterative reconstruction, and/or weight based d osing when appropriate to reduce radiation dose to as low as reasonably achievable (ALARA). [facility]: Dose Right [facility]: SureCare [facility]: Dose Right [facility]: Teradose 4D [facility]: Aegis Mobility FINDINGS: LIVER: Large enhancing mass in the right lobe of liver measured 5 cm. This is consistent with hemangioma. No suspicious findings. There is a small nonenhancing cyst in the left lobe. SPLEEN: Numerous granulomas. PANCREAS: No masses. No significant calcifications. No adjacent inflammation or peripancreatic flui d collections. Pancreatic duct not dilated. GALLBLADDER: Gallstone. No surrounding inflammation. ADRENAL GLANDS: No significant masses or asymmetry. RIGHT KIDNEY AND URETER: No solid masses. Small hypoattenuating lesions are consistent with parenchy mal Ing cortical cysts. No significant calcifications. No hydronephrosis or hydroureter. LEFT KIDNEY AND URETER: Occasional small cyst. No suspicious findings. No significant calcificatio ns. No hydronephrosis or hydroureter. AORTA AND VESSELS: No aneurysm. No dissection. Renal arteries, SMA, celiac without stenosis. RETROPERITONEUM: No retroperitoneal adenopathy, hemorrhage or masses. LARGE AND SMALL BOWEL: No dilatation. No masses. No wall thickening. APPENDIX: Surgically absent. ABDOMINAL WALL: No hernia or masses. PERITONEAL CAVITY: No free air. No free fluid. No peritoneal implants or masses. PELVIS: No mass or free fluid. Normal bladder. BONES: No evidence of metastatic disease. There are degenerative changes involving the right greater trochanter probably accounting for the bone scan findings. OTHER: No other significant finding. IMPRESSION: 1. Cholelithiasis. 2. Approximately 5 cm enhancing mass in the right lobe of liver consistent with hemangioma. 3. Splenic granulomas. 4. No evidence of metastatic disease in the abdomen or pelvis. TECHNICAL DOCUMENTATION: JOB ID: [id number] Quality ID # [id number]: Final reports with documentation of one or more dose reduction techniques (e.g., Au tomated exposure control, adjustment of the mA and/or kV according to patient size, use of iterative reconstruction technique) 2010 [employer]- All Rights Reserved Reading location - IP/workstation name: [email or web address]
== END ==
LOC: RAD 13:18
PROVIDERS: ATTEND Internal Medicine Hematology & Oncology
DX: C50.812 Malignant neoplasm of overlapping sites of left female breast (principal); K80.20 Calculus of gallbladder without cholecystitis without obstruction
CPT/HCPCS: 71260; 74177

== ENCOUNTER → 2019-05-01 | Outpatient (CLI) | payer MEDICARE ==
--- NOTE | 2019-05-01 15:34 | RADIOLOGY REPORT (SQ) ---
EXAM DESCRIPTION: NM MUGA REST COMPLETED DATE/TIME: 05/01/2019 3:11 pm REASON FOR STUDY: Z51.11 ENCOUNTER FOR ANTINEOPLASTIC CHEMOTHERAPY Z51.11 ENCOUNTER FOR ANTINEOPLAS TIC CHEMOTHERAPY Z08 ENCNTR FOR FOLLOW-UP EXAM AFTER TRTMT FOR MALIGNANT NEOP COMPARISON: None. RADIONUCLIDE AND DOSE: 24.4 mCi technetium 99m labeled red blood cells The route of agent administration: Intravenous TECHNIQUE: Following administration of the radionuclide, gated images of the heart are obtained in t hree projections. Left ventricular functional analysis performed. LIMITATIONS: None. FINDINGS: LEFT VENTRICULAR FUNCTION: EJECTION FRACTION: 52%. END-DIASTOLIC VOLUME: 86 mL. END-SYSTOLIC VOLUME: 51 mL. WALL MOTION: No focal wall motion abnormalities. OTHER: No other significant finding. IMPRESSION: NORMAL CARDIAC MUGA STUDY. NORMAL LEFT VENTRICULAR FUNCTION WITH VALUES ABOVE. TECHNICAL DOCUMENTATION: JOB ID: [id number] [employer]- All Rights Reserved Reading location - IP/workstation name: [email or web address]
== END ==
LOC: RAD 13:41
PROVIDERS: ATTEND Internal Medicine Hematology & Oncology
DX: Z51.11 Encounter for antineoplastic chemotherapy (principal); T45.1X5A Adverse effect of antineoplastic and immunosuppressive drugs, initial encounter
CPT/HCPCS: 78472; A9560; Q9969

== ENCOUNTER 2019-05-03 12:55 | Day surgery (SDC) | payer MEDICARE ==
[~2019-05-03 12:55] MED LIST: ACETAMINOPHEN 325 MG TABLET PO PRN; CEFAZOLIN 1 GM/D5W RTU 1 GM/50 ML RTUPB IV PRN; LACTATED RINGERS 1000 ML IV PRN; RINGERS SOLUTION,LACTATED 1,000 ML IV PRN
[2019-05-03] MEDS ORDERED: CEFAZOLIN 1 GM/D5W RTU 1 GM/50 ML RTUPB IV ONE (13:05)
[2019-05-03 14:02] LABS: HEMATOCRIT 35.4 % (36.0-47.0); MEAN CORPUSCULAR HEMOGLOBIN 29.6 pg (27.0-33.4); MEAN CORPUSCULAR VOLUME 87 fl (80-97); PLATELET COUNT 250 10^3/uL (150-450); RED BLOOD COUNT 4.07 10^6/uL (3.72-5.28); RED CELL DISTRIBUTION WIDTH 13.2 % (11.5-14.0); WHITE BLOOD COUNT 6.4 10^3/uL (4.0-10.5)
[2019-05-03] MEDS ORDERED: FENTANYL CITRATE INJ/PF 100 MCG/2 ML AMPUL ONE (15:02)
[2019-05-03] MEDS ORDERED: ONDANSETRON HCL INJ/PF 4 MG/2 ML SDV ONE (15:02)
[2019-05-03] MEDS ORDERED: MIDAZOLAM 2 MG/2 ML INJ ONE (15:02)
[2019-05-03] MEDS ORDERED: LIDOCAINE 1%/EPINEPHRINE INJ 20 ML VIAL ONE (15:02)
[2019-05-03] MEDS ORDERED: PROPOFOL INJ 200 MG/20 ML VIAL IV ONE (15:03)
[2019-05-03] MEDS ORDERED: LIDOCAINE 1%/EPINEPHRINE INJ 20 ML VIAL INJ ONE ×2 (15:30)
[2019-05-03] MEDS ORDERED: OXYCODONE-ACETAMINOPHEN 5-325 MG TABLET PO PRN ×2 (16:07)
[2019-05-03] MEDS ORDERED: FENTANYL CITRATE INJ/PF 100 MCG/2 ML AMPUL IV PRN ×3 (16:07)
[2019-05-03] MEDS ORDERED: DIPHENHYDRAMINE HCL 50 MG/ML VIAL IV PRN (16:07)
[2019-05-03] MEDS ORDERED: MEPERIDINE HCL/PF INJ 25 MG/1 ML DISP.SYRIN IV PRN (16:07)
[2019-05-03] MEDS ORDERED: PROMETHAZINE HCL INJ 25 MG/1 ML VIAL IV PRN ×2 (16:07)
[2019-05-03] MEDS ORDERED: MORPHINE SULFATE 10 MG/ML INJ IV PRN (16:07)
[2019-05-03] MEDS ORDERED: ONDANSETRON HCL INJ/PF 4 MG/2 ML SDV IV PRN (16:07)
--- NOTE | 2019-05-03 16:27 | Discharge Summary ---
Discharge Summary (SDC) - Discharge Final Diagnosis: Locally advanced breast cancer Date of Surgery: 05/03/19 Discharge Date: 05/03/19 Condition: Good Treatment or Instructions: May use port; resume preoperative medications, diet, activity; follow-up with [facility] in 2 weeks. Prescription for Toradol on chart Referrals: CARLOS ALLEN MD [Primary Care Provider] - Discharge Diet: As Tolerated Discharge Activity: Activity As Tolerated Home Care Assistance: None Needed Report the Following to Your Physician Immediately: Shortness of Breath, Increase in Pain, Fever over 101 Degrees
--- NOTE | 2019-05-03 16:35 | Operative Report ---
Operative Report DATE OF SURGERY: 05/03/19 PREOPERATIVE DIAGNOSIS: Locally advanced left breast carcinoma POSTOPERATIVE DIAGNOSIS: Same OPERATION: 1. Focused ultrasound of the right neck. 2. Ultrasound directed insertion of a right subclavian [id number]-[id number] catheter into the Right internal jugulInterpretationar vein. 3. Interpretation of intraoperative fluoroscopy. SURGEON: TOYA LI ANESTHESIA: LMAC TISSUE REMOVED OR ALTERED: none COMPLICATIONS: none ESTIMATED BLOOD LOSS: scant INTRAOPERATIVE FINDINGS: See below PROCEDURE: The patient was seen in the preop holding her with the right neck was marked. She was then taken to the main operating room where LMAC anesthesia was induced. The right neck and chest wall prepped and draped in sterile fashion after taping the right breast caudad. Surgical plan and surgical timeout were conducted. Using ultrasound real-time as a guide, a monica was made the skin after anesthetized skin with 1% lidocaine with epinephrine, and a micro needle and wire threaded to the right internal jugular vein Suitable site for placement of the port was chosen in the right subclavian position. Skin was anesthetized 1% plain lidocaine, 3 cm incision made with a knife, and a port pocket developed large enough to accommodate a single-chamber port was created using blunt dissection and electrocautery. The catheter was then trimmed the appropriate length, tunneled between the 2 incisions, attached to the port with the plastic ring. The port was tucked at the right subclavian pocket. The micro wire was switched over to a conventional 0.030 inch guidewire using the micro introducer sheath. We then threaded a 8 Guinean dilator strip away sheath over the conventional guidewire, removed the guidewire and the dilator, then threaded the catheter into the strip away sheath. Sheath was removed leaving the cath in good position. Under fluoroscopic guidance, there is no kinking of the catheter, and the tip is in the superior vena cava right atrial junction. The catheter was aspirated and flushed with heparinized saline using a Wright needle. And it functioned satisfactorily. Wounds closed with 3-0 Vicryl benzoin, and Steri-Strips. Patient tolerated procedure well, taken recovery in stable condition.
--- NOTE | 2019-05-03 16:41 | RADIOLOGY REPORT (SQ) ---
EXAM DESCRIPTION: CHEST SINGLE VIEW; FLUORO/CV PLACEMENT COMPLETED DATE/TIME: 05/03/2019 4:32 pm REASON FOR STUDY: RT SIDED PORTACATH C50.912 MALIGNANT NEOPLASM OF UNSPECIFIED SITE OF LEFT FEMAL COMPARISON: 07/09/2018 FLUOROSCOPY TIME: 0.1 minutes 3 images saved to PACS. TECHNIQUE: Intra-operative images acquired during surgical procedure to evaluate progress. NUMBER OF IMAGES: 3 LIMITATIONS: None. FINDINGS: Limited intraoperative fluoroscopic images demonstrate evidence of right internal jugular chest port placement. Please see operative report for detailed description of procedure. IMPRESSION: IMAGE(S) OBTAINED DURING PROCEDURE. COMMENT: Quality ID 145: Final reports for procedures using fluoroscopy that document radiation exp osure indices, or exposure time and number of fluorographic images (if radiation exposure indices are not available) Please consult full operative report of the attending physician for description of the procedure. TECHNICAL DOCUMENTATION: JOB ID: [id number] [employer]- All Rights Reserved Reading location - IP/workstation name: [email or web address]
--- NOTE | 2019-05-03 16:41 | RADIOLOGY REPORT (SQ) ---
EXAM DESCRIPTION: CHEST SINGLE VIEW; FLUORO/CV PLACEMENT COMPLETED DATE/TIME: 05/03/2019 4:32 pm REASON FOR STUDY: RT SIDED PORTACATH C50.912 MALIGNANT NEOPLASM OF UNSPECIFIED SITE OF LEFT FEMAL COMPARISON: 07/09/2018 FLUOROSCOPY TIME: 0.1 minutes 3 images saved to PACS. TECHNIQUE: Intra-operative images acquired during surgical procedure to evaluate progress. NUMBER OF IMAGES: 3 LIMITATIONS: None. FINDINGS: Limited intraoperative fluoroscopic images demonstrate evidence of right internal jugular chest port placement. Please see operative report for detailed description of procedure. IMPRESSION: IMAGE(S) OBTAINED DURING PROCEDURE. COMMENT: Quality ID 145: Final reports for procedures using fluoroscopy that document radiation exp osure indices, or exposure time and number of fluorographic images (if radiation exposure indices are not available) Please consult full operative report of the attending physician for description of the procedure. TECHNICAL DOCUMENTATION: JOB ID: [id number] [employer]- All Rights Reserved Reading location - IP/workstation name: [email or web address]
[2019-05-03 18:03] VITALS: BP 129/69
[2019-05-04] MEDS ORDERED: LIDOCAINE 0.5% INJ-PF (5 MG/ML) 50 ML SDV SUBCUT PRN (05:00)
== END 2019-05-03 18:00 | disposition home or self-care (01) ==
LOC: OROUT 12:55
PROVIDERS: ATTEND Surgery
DX: C50.912 Malignant neoplasm of unspecified site of left female breast (principal); I10 Essential (primary) hypertension; Z85.3 Personal history of malignant neoplasm of breast; Z79.899 Other long term (current) drug therapy; I25.10 Atherosclerotic heart disease of native coronary artery without angina pectoris
CPT/HCPCS: 36561; 36415; 85027; 71045; 77001; C1752; C1788; J2250; J0690; J3010; J3490; J2405; J2704; J1642; 532

== ENCOUNTER 2019-10-25 05:41 | Day surgery (SDC) | payer MEDICARE ==
[2019-10-18 09:48] LABS: HEMOGLOBIN 12.1 g/dL (12.0-15.5); MEAN CORPUSCULAR HEMOGLOBIN 30.3 pg (27.0-33.4); MEAN CORPUSCULAR HGB CONC 34.5 g/dL (32.0-36.0); MEAN CORPUSCULAR VOLUME 88 fl (80-97); PLATELET COUNT 304 10^3/uL (150-450); RED BLOOD COUNT 3.99 10^6/uL (3.72-5.28); RED CELL DISTRIBUTION WIDTH 16.7 % (11.5-14.0); WHITE BLOOD COUNT 6.1 10^3/uL (4.0-10.5)
[2019-10-18 10:12] LABS: ANION GAP 9 (5-19); BLOOD UREA NITROGEN 14 mg/dL (7-20); CALCIUM 9.3 mg/dL (8.4-10.2); CARBON DIOXIDE 27 mmol/L (22-30); CHLORIDE 105 mmol/L (98-107); GLUCOSE 91 mg/dL (75-110); POTASSIUM 4.2 mmol/L (3.6-5.0)
[~2019-10-25 05:41] MED LIST changes: +CEFAZOLIN 1 GM/D5W RTU 1 GM/50 ML RTUPB IV ONE; +LIDOCAINE 0.5% INJ-PF (5 MG/ML) 50 ML SDV SUBCUT PRN; -RINGERS SOLUTION,LACTATED 1,000 ML IV PRN
[2019-10-25] MEDS ORDERED: PROPOFOL INJ 200 MG/20 ML VIAL IV ONE (07:05)
[2019-10-25] MEDS ORDERED: FENTANYL CITRATE INJ/PF 250 MCG/5 ML AMPULE ONE (07:05)
[2019-10-25] MEDS ORDERED: ONDANSETRON HCL INJ/PF 4 MG/2 ML SDV ONE (07:05)
[2019-10-25] MEDS ORDERED: DEXAMETHASONE SOD PHOSPHATE INJ 4 MG/1 ML VIAL ONE (07:05)
[2019-10-25] MEDS ORDERED: MORPHINE SULFATE 10 MG/ML INJ ONE ×2 (07:05→13:33)
[2019-10-25] MEDS ORDERED: MIDAZOLAM 2 MG/2 ML INJ ONE (07:05)
[2019-10-25] MEDS ORDERED: LIDOCAINE 1%/EPINEPHRINE INJ 20 ML VIAL ONE (07:09)
[2019-10-25] MEDS ORDERED: MICROFIBRILLAR COLLAGEN 1 GM PACK ONE (07:09)
[2019-10-25] MEDS ORDERED: METHYLENE BLUE 50 MG/10 ML AMPULE ONE (07:09)
[2019-10-25] MEDS ORDERED: EPHEDRINE SULFATE INJ 50 MG/1 ML AMPULE ONE (08:27)
[2019-10-25] MEDS ORDERED: DIPHENHYDRAMINE HCL 50 MG/ML VIAL IV PRN (09:37)
[2019-10-25] MEDS ORDERED: MEPERIDINE HCL/PF INJ 25 MG/1 ML DISP.SYRIN IV PRN (09:37)
[2019-10-25] MEDS ORDERED: FENTANYL CITRATE INJ/PF 100 MCG/2 ML AMPUL IV PRN ×3 (09:37)
[2019-10-25] MEDS ORDERED: MORPHINE SULFATE 10 MG/ML INJ IV PRN (09:37)
[2019-10-25] MEDS ORDERED: PROMETHAZINE HCL INJ 25 MG/1 ML VIAL IV PRN ×2 (09:37)
[2019-10-25] MEDS ORDERED: DEXTROSE 5%-LACTATED RINGERS 1,000 ML IV PRN (09:59)
--- NOTE | 2019-10-25 10:11 | Operative Report ---
Operative Report DATE OF SURGERY: 10/25/19 PREOPERATIVE DIAGNOSIS: Locally invasive left breast carcinoma, triple negative, status post neoadjuvant chemotherapy POSTOPERATIVE DIAGNOSIS: Same OPERATION: 1. Left modified radical mastectomy. 2. Drainage of chest wall. 3. Flushing of right subclavian Ahvnbe-t-Hqia catheter SURGEON: TOYA ELLER 1ST SHIPPING ROOM HELPER: ANDRE SLADE ANESTHESIA: GA TISSUE REMOVED OR ALTERED: Left breast axillary contents; portions of fat from inferior mastectomy flap COMPLICATIONS: None ESTIMATED BLOOD LOSS: Scant INTRAOPERATIVE FINDINGS: See below PROCEDURE: The patient was in the preop holding area the left breast was marked by Dr. Eller. She is then taken to the main operating room general anesthesia was induced. Left arm was abducted, left arm, axilla, breast and chest wall prepped and draped with Betadine. Plan and surgical timeout were conducted. Markings were made on the skin for standard left mastectomy. Of note there was fullness in the upper outer quadrant consistent with reduced size of the primary tumor. Using a #10 blade, the superior border of the elliptical incision was made. The superior skin flap was elevated of appropriate thickness. The flap was taken to the parasternal chest wall medially, the sub-clavicular area superiorly, and the tail of Isaacs laterally. We made the inferior skin incision then developed the inferior skin flap taking the dissection down to the serratus anterior muscle inferiorly. We now took the breast off of the chest wall which included the pectoralis major fascia. There was no evidence of palpable or visible tumor or penetration into the chest wall. We now brought onto the field the Bookwalter retractor system, to gain exposure to the left axilla proper. Once this was in position, we developed the skin flaps laterally, superiorly and inferiorly to expose the axilla. Pectoralis major muscle was elevated, and the dissection taken down to the pectoralis minor muscle. The axillary was exposed, and the fatty and lymphatic tissue taken off of the axillary vein which was trifurcated. The axillary contents were carefully taken off of the lateral chest wall starting with the fatty tissue and lymph nodes up under the pectoralis minor muscle consistent with level 2 dissection. A intercostal brachial nerve was sacrificed during the dissection. The nerve to the serratus anterior muscle was identified and preserved throughout the dissection. We mobilized the axillary contents from the inferior and lateral sides of the axilla. A tissue was taken off of the thoracodorsal complex under excellent visualization. The thoracodorsal nerve was spared. We now worked in a circumferential fashion mobilizing the remaining fatty tissue and axillary contents. Fortunately there was minimal scar tissue. Bleeding was minimal. The left breast and axillary contents were removed from the patient, and marked with a long suture in the lateral position is short suture in the superior position and sent to pathology. In addition, we spent a few more moments removing fatty tissue from under the pectoralis minor muscle, and this tissue was sent in the same receptacle. To reduce the bulkiness of the inferior skin flap, 2 portions of subcutaneous tissue were removed using electrocautery and sent as inferior mastectomy flap fat. Again this was done primarily to smooth out the anterior abdominal wall tissue. 2 large Bryan drains were placed in the inferior skin flap laterally. They were secured to the skin with 2-0 Prolene suture. We now irrigated the operative field several times with warm saline and removed any nonviable fat. There were no significant bleeders. We felt the field was safe for closure. The flaps were closed with multiple running 2-0 Vicryl sutures and then skin closed with skin glue. Drains were hooked to bulb suction. We now addressed the right subclavian port. The overlying skin was prepped with Betadine, using a Wright needle, the port was aspirated successfully and flushed with heparinized saline, dilute. Patient tolerated the procedure well, extubated, and taken recovery room in stable condition The physician nurses medical assistants phlebotomists, Ms. Tobias, provided assistance during this case by: retracting tissue, closure of skin incisions.
[2019-10-25] MEDS ORDERED: ACETAMINOPHEN INJ/PF 1000 MG/100 ML SDV IV SCH (12:00)
[2019-10-25] MEDS: OXYCODONE-ACETAMINOPHEN 5-325 MG TABLET PO PRN ×3 (12:09→23:09)
[2019-10-25] MEDS: ACETAMINOPHEN 1,000 MG/100 ML RTUPB IV SCH ×3 (12:11→23:09)
[2019-10-25] MEDS ORDERED: SUCCINYLCHOLINE CHLORIDE INJ 200 MG/10 ML VIAL ONE (13:53)
[2019-10-25] MEDS ORDERED: GLYCOPYRROLATE 1 MG/5 ML VIAL ONE (13:53)
[2019-10-25] MEDS ORDERED: PHENYLEPHRINE HCL INJ/PF 10 MG/1 ML SDV ONE (13:53)
[2019-10-25] MEDS ORDERED: MORPHINE SULFATE 10 MG/ML INJ IV ONE (14:00)
[2019-10-25] MEDS ORDERED: ACETAMINOPHEN 1,000 MG/100 ML RTUPB IV ONE (23:03)
[2019-10-26] MEDS: OXYCODONE-ACETAMINOPHEN 5-325 MG TABLET PO PRN (05:23)
[2019-10-26] MEDS: ACETAMINOPHEN 1,000 MG/100 ML RTUPB IV SCH (05:24)
[2019-10-26 08:06] VITALS: BP 104/59
--- NOTE | 2019-10-26 09:35 | PDOC DISCHARGE SUMMARY ---
General - Admit/Disc Date/PCP Admission Date/Primary Care Provider: CARLOS ALLEN MD Discharge Date: 10/26/19 - Discharge Diagnosis Final Diagnosis: Triple negative, invasive left breast carcinoma, status post neoadjuvant chemotherapy, status post left modified radical mastectomy - Assessment Summary: 64-year-old white female with a history of triple negative, locally invasive left breast carcinoma status post neoadjuvant chemotherapy, who was brought in ambulatory surgery for left modified radical mastectomy. The procedure was performed by Dr. Li on 10/25/2019. She had 2 drains placed. Postoperatively she did well, voided, tolerated diet, the following day was ready for discharge home. She was educated on drain management. - Additional Information Resuscitation Status: Full Code Discharge Diet: Regular Discharge Activity: Bedrest, No Lifting/Push/Pulling Referrals: CARLOS ALLEN MD [Primary Care Provider] - TOYA LI MD [ACTIVE STAFF] - 11/03/19 1:00 pm (CALL THE OFFICE FOR QUESTIONS AND CONCERNS.) Home Medications: Losartan Potassium [Cozaar 100 mg Tablet] 100 mg PO ASDIR PRN 03/20/13 Multivit/Folic Acid/Vit K1 [One-A-Day Women's 50 Plus Tab] 1 each PO DAILY 07/09/18 History of Present Illiness History of Present Illness: CAROL ANN PAK is a 64 year old female Physical Exam Vital Signs: Temp Pulse Resp BP Pulse Ox 98.2 F 64 16 104/59 L 97 10/26/19 08:37 10/26/19 08:37 10/26/19 08:37 10/26/19 08:37 10/26/19 08:37 Intake & Output 10/25/19 10/26/19 10/27/19 06:59 06:59 06:59 Intake Total 0 2190 Output Total 360 10 Balance 0 1830 -10 Weight 81.65 kg Results Laboratory Results: WBC 6.1 10^3/uL (4.0-10.5) 10/18/19 08:50 RBC 3.99 10^6/uL (3.72-5.28) 10/18/19 08:50 Hgb 12.1 g/dL (12.0-15.5) 10/18/19 08:50 Hct 35.0 % (36.0-47.0) L 10/18/19 08:50 MCV 88 fl (80-97) 10/18/19 08:50 MCH 30.3 pg (27.0-33.4) 10/18/19 08:50 MCHC 34.5 g/dL (32.0-36.0) 10/18/19 08:50 RDW 16.7 % (11.5-14.0) H 10/18/19 08:50 Plt Count 304 10^3/uL (150-450) 10/18/19 08:50 Sodium 141.2 mmol/L (137-145) 10/18/19 08:50 Potassium 4.2 mmol/L (3.6-5.0) 10/18/19 08:50 Chloride 105 mmol/L (98-107) 10/18/19 08:50 Carbon Dioxide 27 mmol/L (22-30) 10/18/19 08:50 Anion Gap 9 (5-19) 10/18/19 08:50 BUN 14 mg/dL (7-20) 10/18/19 08:50 Creatinine 0.57 mg/dL (0.52-1.25) 10/18/19 08:50 Est GFR ( Amer) > 60 (>60) 10/18/19 08:50 Est GFR (MDRD) Non-Af > 60 (>60) 10/18/19 08:50 Glucose 91 mg/dL (75-110) 10/18/19 08:50 Calcium 9.3 mg/dL (8.4-10.2) 10/18/19 08:50
== END 2019-10-26 10:16 | disposition home or self-care (01) ==
LOC: OROUT 05:41 → 2N 11:25 → OROUT 10-26 10:16
PROVIDERS: ATTEND Surgery
DX: C50.912 Malignant neoplasm of unspecified site of left female breast (principal); Z79.899 Other long term (current) drug therapy; I10 Essential (primary) hypertension
CPT/HCPCS: 36415; 85027; 80048; 88305 ×2; 88309 ×2; 94799; 00404; 19307; 96523; J2250; J0690; J1100; J3490 ×2; J3010; J2270; A9270 ×2; J2370; J0330; J2405; J2704; J1642; J0131 ×2; 404; 88307; Q9968